=== PATIENT | female | born 1970 | race Two or more races ===

== ENCOUNTER 2021-11-11 17:20 | Emergency (ER) | payer OTHER ==
[~2021-11-11] VITALS: Ht 162.6 cm; Wt 51.7 kg
[2021-11-11] MEDS ORDERED: ANTIVER (18:43)
[2021-11-11] MEDS ORDERED: TYLENOL (18:44)
[2021-11-11] MEDS ORDERED: GABAPENTIN300 M2 PO (20:39)
[2021-11-11] MEDS ORDERED: MEDROLPACK PO (20:39)
== END 2021-11-11 21:11 | disposition home or self-care (01) ==
LOC: ER 17:20
DX: G50.0 Trigeminal neuralgia (principal)

== ENCOUNTER 2022-02-22 17:24 | Emergency (ER) | payer OTHER ==
[~2022-02-22] VITALS: Ht 162.6 cm; Wt 52.6 kg
[~2022-02-22 17:24] MED LIST: ANTIVER; GABAPENTIN300 M2 PO; MEDROLPACK PO; TYLENOL
[2022-02-22] MEDS ORDERED: ZIPSOR25 MG (17:35)
== END 2022-02-22 20:50 | disposition home or self-care (01) ==
LOC: ER 17:24
DX: M54.50 Low back pain, unspecified (principal)